=== PATIENT | female | born 1960 | race Caucasian/White ===

== ENCOUNTER 2018-05-07 16:39 | Emergency (ER) | payer MEDICARE, MEDICAID, SELFPAY ==
[2018-05-07 16:48] VITALS: BP 109/72; PULSE 77; RESP 20; TEMP 36.7; O2SAT 96
== END 2018-05-07 19:10 | disposition left against medical advice (07) ==
LOC: ED 17:03
PROVIDERS: Family Provider Family Medicine; PCP Family Medicine
DX: E11.9 Type 2 diabetes mellitus without complications (principal)
CPT/HCPCS: 99281; 99282

== ENCOUNTER → 2019-10-29 12:23 | Outpatient (CLI) | payer MEDICARE, MEDICAID, SELFPAY ==
[2019-10-29 12:49] LABS: Add Manual Diff / Slide Review NO; Basophils Absolute Auto 100 /uL (0-100); Basophils Percent Auto 0.6 % (0-2); Eosinophils Absolute Auto 200 /uL (0-450); Eosinophils Percent Auto 1.8 % (2-4); Hematocrit 42.6 % (36-46); Hemoglobin 14.2 g/dL (12.0-16.0); Lymphocytes Absolute Auto 2200 /uL (1100-4500); Lymphocytes Percent Auto 19.8 % (25-40); Mean Corpuscular HGB Conc 33.3 % (30-36); Mean Corpuscular Hemoglobin 29.6 PG (26-34); Mean Corpuscular Volume 88.9 fL (80-100); Monocytes Absolute Auto 800 /uL (0-900); Monocytes Percent Auto 7.6 % (3-14); Neutrophils Absolute Auto 7700 /uL (1500-7000); Neutrophils Percent Auto 70.2 % (50-75); Platelet Count 364 X10^3/uL (150-400); Red Blood Cell Count 4.79 X10^6/uL (4.0-5.2); Red Cell Distribution Width 13.5 % (11.6-14.8); White Blood Cell Count 10.9 X10^3/uL (4.5-11.0)
[2019-10-29 13:09] LABS: Alanine Aminotransferase 22 IU/L (<35); Albumin 4.5 g/dL (3.5-5.0); Albumin Globulin Ratio 1.3 (1.0-2.8); Alkaline Phosphatase 88 U/L (38-126); Aspartate Aminotransferase 28 IU/L (14-36); BUN Creatinine Ratio 22.9 (6-22); Bilirubin Total 0.3 mg/dL (0.2-1.3); Blood Urea Nitrogen 16 mg/dL (7-17); Calcium 10.2 mg/dL (8.4-10.2); Carbon Dioxide 31 mmol/L (22-32); Chloride 106 mmol/L (98-107); Cholesterol 183 mg/dL (140-199); Estimated Glomerular Filt Rate > 60.0 mL/min (>60); Globulin 3.6 g/dL (1.7-4.1); Glucose 105 mg/dL (70-100); HDL Cholesterol 71 mg/dL (40-60); HEMOLYSIS < 15 (0-50); LDL Cholesterol Calculated 82 mg/dL (<100); Potassium 3.7 mmol/L (3.4-5.1); Sodium 144 mmol/L (137-145); Total Protein 8.1 g/dL (6.3-8.2); Triglycerides 152 mg/dL (35-150)
[2019-10-29 13:24] LABS: Hemoglobin A1C% w Est Avg Glu 6.1 % (4.0-6.0)
== END ==
PROVIDERS: Family Provider Family Medicine; PCP Family Medicine; Referring Provider Family Medicine; Visit Provider Family Medicine
DX: Z76.89 Persons encountering health services in other specified circumstances (principal); Z79.891 Long term (current) use of opiate analgesic
CPT/HCPCS: 80053; 80061; 83036; 85025

== ENCOUNTER → 2020-02-05 10:44 | Outpatient (CLI) | payer MEDICARE, MEDICAID, SELFPAY ==
--- NOTE | 2020-02-05 10:49 | DI.RAD.S_ITS ---
PROCEDURE: XR LUMBAR SPINE 2-3V INDICATIONS: BACK PAIN TECHNIQUE: 3 views of the lumbar spine were acquired. COMPARISON: None. FINDINGS: Bones: 5 [id number] vertebrae are present. There is mild dextroscoliotic bony alignment centered at L4. No vertebral body compression fractures. No suspicious bony lesions. Facet osteoarthritis is mild to moderate, from L3 inferiorly. Soft tissues: Overlying bowel gas pattern is normal. No suspicious soft tissue calcifications. IMPRESSION: Mild scoliosis, facet osteoarthritis present from L3 inferiorly and there is only a mild degree of degenerative disc disease present through that area at L3-4. No compression fracture found. The degree of degeneration would predispose to spinal and foraminal stenosis and depending on clinical status followup by MR scanning may become necessary. Dictated by: Kushal Iqbal M.D. on 02/05/2020 at 12:30 Approved by: Kushal Iqbal M.D. on 02/05/2020 at 12:31
== END ==
PROVIDERS: Family Provider Family Medicine; PCP Family Medicine; Referring Provider Family Medicine; Visit Provider Family Medicine
DX: M54.9 Dorsalgia, unspecified (principal); M47.816 Spondylosis without myelopathy or radiculopathy, lumbar region; M51.36 Other intervertebral disc degeneration, lumbar region; M41.9 Scoliosis, unspecified; G89.29 Other chronic pain
CPT/HCPCS: 72100

== ENCOUNTER 2020-05-31 18:12 | Emergency (ER) | payer MEDICARE, MEDICAID, SELFPAY ==
[2020-05-31] VITALS (9 sets, daily range): BP systolic 136–191; BP diastolic 77–94; PULSE 76–119; RESP 22–44; TEMP 36.8; O2SAT 97–100
--- NOTE | 2020-05-31 18:12 | DI.RAD.S_ITS ---
PROCEDURE: XR TIBIA FIBULA RT 2V INDICATIONS: fall TECHNIQUE: 2 views of the tibia and fibula were acquired. COMPARISON: None. FINDINGS: Bones: Evaluation limited by suboptimal positioning. There is a moderately displaced and impacted fracture of the medial tibial plateau. There is lateral subluxation of the knee joint. Soft tissues: A large joint effusion is present with a lipohemarthrosis. Periarticular soft tissue swelling demonstrated. IMPRESSION: 1. Lateral subluxation of the left knee with a medial tibial plateau fracture. 2. Large joint effusion with a lipohemarthrosis. Dictated by: Deyvi Cardenas M.D. on 05/31/2020 at 18:45 Approved by: Deyvi Cardenas M.D. on 05/31/2020 at 18:48
--- NOTE | 2020-05-31 18:15 | ED.FALL ---
HPI - Fall General Chief Complaint: Extremity Injury, Lower Stated Complaint: lt leg fx Time Seen by Provider: 05/31/20 18:13 Source: patient and EMS Mode of arrival: EMS Limitations: no limitations History of Present Illness HPI Narrative: 60F non smoker with non-contributory medical history presents to the ED by EMS after falling down 1-2 stairs just [employer]. She has significant left knee pain with deformity. She denies LOC, head, neck, back, chest pain. She states it was purely a clumsy moment and denies any precipitating event such as dizziness or lightheadedness. She denies CP, SOB, or weakness. She denies numbness or tingling of her left leg. Her pain has been helped by EMS fentanyl and splint. She takes no blood thinners. MD complaint: fall Onset (ago): minute(s) Fall from: standing Fall witnessed: no Place fall occurred: home Loss of consciousness: none Prolonged down time: no Symptoms prior to fall: none Context: tripped/slipped Location of injury - extremities: Left: knee Severity: moderate Quality: sharp, stabbing and aching Associated symptoms (after fall): unable to walk Related Data Home Medications Medication Instructions Recorded Confirmed fenofibrate 1 tab PO DAILY 05/07/18 05/19/20 lamotrigine 200 mg PO DAILY 05/07/18 05/19/20 lisinopril 10 mg PO DAILY 05/07/18 05/19/20 lurasidone [Latuda] 1 tab PO DAILY 05/07/18 05/19/20 aspirin 325 mg tablet 325 mg PO DAILY 10/29/19 05/19/20 Previous Rx's Medication Instructions Recorded atorvastatin 80 mg PO HS #90 tab 09/30/16 Glucose: Test Strips #4 each 11/08/19 cyclobenzaprine 10 mg tablet 10 mg PO BEDTIME #30 tab 04/30/20 gabapentin 400 mg capsule See Rx Instructions .ROUTE 04/30/20 .COMPLEX #270 cap buspirone 10 mg tablet 10 mg PO BID #180 tab 05/25/20 trazodone 100 mg tablet 100 mg PO BEDTIME #90 tab 05/25/20 Allergies Allergy/AdvReac Type Severity Reaction Status Date / Time No Known Drug Allergies Allergy Unverified 05/31/20 18:17 Review of Systems Constitutional Constitutional: Denies chills, Denies fatigue, Denies fever(s), Denies frequent falls, Denies lethargy and Denies weakness Eyes Eyes: Denies change in vision, Denies eye discharge, Denies irritation and Denies loss of vision ENT Ears, Nose, Mouth, and Throat: Denies change in voice, Denies dizziness, Denies neck pain, Denies sore throat and Denies throat swelling Cardiovascular Cardiovascular: Denies chest pain, Denies irregular heart rhythm, Denies lightheadedness, Denies palpitations, Denies dyspnea, Denies dyspnea on exertion and Denies orthopnea Respiratory Respiratory: Denies cough, Denies dyspnea, Denies dyspnea on exertion and Denies wheezing Gastrointestinal Gastrointestinal: Denies abdominal pain, Denies change in bowel habits, Denies diarrhea, Denies nausea and Denies vomiting Musculoskeletal Musculoskeletal: Reports deformity, Reports arthralgias, Reports joint swelling, Reports limited range of motion, Denies neck pain and Denies numbness Integumentary/Breasts Skin/Breast: Denies pruritus, Denies erythema, Denies rash and Denies wounds Neurologic Neurologic: Denies behavioral changes, Denies confusion, Denies dizziness, Denies frequent falls, Denies loss of vision, Denies numbness and Denies weakness Psychiatric Psychiatric: Denies anxiety, Denies behavioral changes, Denies confusion, Denies depression, Denies homicidal ideation and Denies suicidal ideation Endocrine Endocrine: Denies fatigue, Denies flushing and Denies palpitations Hematologic/Lymphatic Hematologic/Lymphatic: Denies easy bruising Allergic/Immunologic Allergic/Immunologic: Denies urticaria, Denies throat swelling and Denies wheezing Patient History Medical History (Updated 05/31/20 @ 19:06 by Isaias Enamorado) Anxiety (Chronic ~2003) Bilateral hip pain (Acute) Bipolar disorder (Acute) Chronic back pain (Acute ~2011) Depression (Chronic ~1995) Diabetes (Acute) Diabetes (Acute) Dysphagia (Acute) Fibromyalgia (Chronic ~1999) Fractures (Resolved ~2018) History of urinary incontinence (Chronic) Menopause (Chronic) PTSD (post-traumatic stress disorder) (Chronic ~2002) Restless leg syndrome (Chronic) Shoulder pain (Chronic ~2002) Swallowing difficulty (Acute) Tobacco abuse disorder (Acute) Vision disorder (Chronic) Surgical History (Updated 11/10/19 @ 20:30 by Maria Luisa Tse) Anesthesia (Resolved) History of ectopic (Resolved ~05/02/80) Family History (Updated 11/10/19 @ 20:31 by Maria Luisa Tse) Father Alcoholism Mother History of heart disease Stroke Social History Smoking Status: Current every day smoker (1/2 pack per day ) Tobacco: How many years used: 14 quit status: considering quitting second hand exposure: Yes alcohol intake: former (Quit 30 years ago ) substance use type: former substance user and marijuana (former ) Smoking Status: Current every day smoker alcohol intake frequency: 0-2 drinks per day Substance Use Type: does not use Exam Narrative Exam Narrative: GENERAL: [60] year old patient appears stated age. Well-nourished, well-developed patient, in mild distress. GCS 15 HEAD: Atraumatic. Normocephalic. EYES: Pupils equal round and reactive. Extraocular motions intact. No scleral icterus. No injection or drainage. ENT: Nose without bleeding, purulent drainage. Throat without erythema, tonsillar hypertrophy or exudate. Airway patent. NECK: Trachea midline. Non tender, no stepoffs. CARDIOVASCULAR: Regular rate and rhythm without murmurs, gallops, or rubs. RESPIRATORY: Clear to auscultation. Breath sounds equal bilaterally. No wheezes, rales, or rhonchi. GASTROINTESTINAL: Abdomen soft, non-tender, nondistended. EXTREMITIES: mild tenderness to left hip. Obvious deformity to L knee with pain, swelling. This injury is closed, isolated and NV intact. Sensation distal to injury in tact. Palpable DP. Cap refill < 2s. Vacuum splint in place. . BACK: Nontender without deformity or crepitance. No flank tenderness. NEURO: AOx3. SKIN: No rash or erythema of visible areas Initial Vital Signs Initial Vital Signs: Vital Signs Pulse Rate 76 05/31/20 18:15 Respiratory Rate 22 05/31/20 18:15 Blood Pressure 142/85 H 05/31/20 18:15 Pulse Oximetry 98 05/31/20 18:15 Course Orders Ordered: ED Orders 05/31/20 18:12 XR tibia fibula LT 2V Stat 05/31/20 18:14 XR hip w pel if done LT 2V Stat 05/31/20 18:40 CT angio LE LT Stat 05/31/20 19:39 Basic Metabolic Panel Stat Complete Blood Count AUTO DIFF Stat Prothrombin Time INR Stat 05/31/20 20:00 COVID19 -ED/INPAT/OR/L&D Stat Discontinued Medications Hydromorphone HCl (Dilaudid) 0.5 mg IV NOW ONE Stop: 05/31/20 21:37 Last Admin: 05/31/20 21:42 Dose: 0.5 mg Documented by: HARSHIL Sodium Chloride (Normal Saline 0.9%) 500 mls @ 1,000 mls/hr IV BOLUS ONE Stop: 05/31/20 19:09 Last Infusion: 05/31/20 19:30 Dose: 0 mls/hr Documented by: Admin: 05/31/20 19:00 Dose: 1,000 mls/hr Documented by: ELSA Ondansetron HCl (Zofran) 4 mg IV NOW ONE Stop: 05/31/20 18:57 Last Admin: 05/31/20 19:11 Dose: 4 mg Documented by: FLORECITA Propofol (Diprivan) 75 mg IV NOW ONE Stop: 05/31/20 18:57 Last Admin: 05/31/20 21:33 Dose: Not Given Documented by: HARSHIL Consultations Consultation #1: films pushed to [facility]. Local ortho contacted on receipt of initial Xray. call to [facility]. Message left. 1929 - Dr. Jones to review images upon completion of her current OR case 1939 - not able to see images, I went to and requested that all images be sent again. Called back to let [facility] know we have resent them 2039 - call back to check on status 2109 - Dr. Jones calls back. Happy to accept. Understands and agrees with waiting on reduction. No further requests. Ambulance contacted. Time: 19:03 Consultation #2: Dr. Burt ([facility]) agrees that given NV in tact, hold off on reduction of minor subluxation. Vital Signs Vital signs: Vital Signs - 8 hr 05/31/20 18:15 05/31/20 19:30 05/31/20 19:38 Temperature Pulse Rate 76 105 H 106 H Respiratory Rate 22 44 H 38 H Blood Pressure 142/85 H 191/94 H Pulse Oximetry 98 100 100 05/31/20 20:00 05/31/20 20:30 05/31/20 20:59 Temperature Pulse Rate 110 H 110 H 116 H Respiratory Rate 27 H 31 H 28 H Blood Pressure 136/77 Pulse Oximetry 98 98 98 05/31/20 21:00 05/31/20 21:30 05/31/20 22:07 Temperature 98.2 F Pulse Rate 119 H 111 H Respiratory Rate 37 H 23 Blood Pressure 143/87 H 141/82 H Pulse Oximetry 98 97 - Fall Lab Data Result diagrams: 05/31/20 19:39 05/31/20 19:39 Labs: Lab Results 05/31/20 05/31/20 05/31/20 Range/Units 19:39 19:39 19:39 WBC 7.4 (4.5-11.0) X10^3/uL RBC 4.40 (4.0-5.2) X10^6/uL Hgb 12.9 (12.0-16.0) g/dL Hct 39.5 (36-46) % MCV 89.9 (80-100) fL MCH 29.4 (26-34) PG MCHC 32.7 (30-36) % RDW 15.2 H (11.6-14.8) % Plt Count 220 (150-400) X10^3/uL Neut % (Auto) 72.0 (50-75) % Lymph % (Auto) 18.8 L (25-40) % [place] % (Auto) 7.3 (3-14) % Eos % (Auto) 1.4 L (2-4) % Baso % (Auto) 0.5 (0-2) % Neut # (Auto) 5400 (8160-3779) /uL Lymph # (Auto) 1400 (5930-7269) /uL [place] # (Auto) 500 (0-900) /uL Eos # (Auto) 100 (0-450) /uL Baso # (Auto) 0 (0-100) /uL PT 11.9 (10.1-12.7) SECONDS INR 1.0 (0.9-1.3) Sodium 137 (137-145) mmol/L Potassium 3.6 (3.4-5.1) mmol/L Chloride 102 (98-107) mmol/L Carbon Dioxide 28 (22-32) mmol/L BUN 11 (7-17) mg/dL Creatinine 0.86 (0.52-1.04) mg/dL Estimated GFR > 60.0 (>60) mL/min BUN/Creatinine Ratio 12.8 (6-22) Glucose 129 H (80-110) mg/dL Calcium 10.5 H (8.4-10.2) mg/dL COVID-19 PCR (Negative) 05/31/20 Range/Units 20:00 WBC (4.5-11.0) X10^3/uL RBC (4.0-5.2) X10^6/uL Hgb (12.0-16.0) g/dL Hct (36-46) % MCV (80-100) fL MCH (26-34) PG MCHC (30-36) % RDW (11.6-14.8) % Plt Count (150-400) X10^3/uL Neut % (Auto) (50-75) % Lymph % (Auto) (25-40) % [place] % (Auto) (3-14) % Eos % (Auto) (2-4) % Baso % (Auto) (0-2) % Neut # (Auto) (4763-3122) /uL Lymph # (Auto) (6858-3062) /uL [place] # (Auto) (0-900) /uL Eos # (Auto) (0-450) /uL Baso # (Auto) (0-100) /uL PT (10.1-12.7) SECONDS INR (0.9-1.3) Sodium (137-145) mmol/L Potassium (3.4-5.1) mmol/L Chloride (98-107) mmol/L Carbon Dioxide (22-32) mmol/L BUN (7-17) mg/dL Creatinine (0.52-1.04) mg/dL Estimated GFR (>60) mL/min BUN/Creatinine Ratio (6-22) Glucose (80-110) mg/dL Calcium (8.4-10.2) mg/dL COVID-19 PCR Negative (Negative) Imaging Data Hip / Pelvis: Radiologist's Impression: PROCEDURE: XR HIP W PEL IF DONE LT 2V INDICATIONS: fall with pain in hip, obvious tib/fib TECHNIQUE: AP pelvis with lateral view of the left hip. COMPARISON: None. FINDINGS: Bones: No fractures or dislocations. Pelvic ring appears intact. No suspicious bony lesions. Soft tissues: The visualized bowel gas pattern is normal. No suspicious soft tissue calcifications. IMPRESSION: 1. No fracture or dislocation. Dictated by: Deyvi Cardenas M.D. on 05/31/2020 at 18:43 Approved by: Deyvi Cardenas M.D. on 05/31/2020 at 18:44 Tib / Fib: My Impression: complex tibial plateau fracture with depression and moderate displacement, mild lateral subluxation Radiologist's Impression: Chart Viewer Diagnostics DATE TYPE STATUS REF RANGE/AUTHOR Hx 05/31/20 18:14 Deyvi Cardenas 05/31/20 18:12 Deyvi Cardenas Ayse Fournier 60, F0 1960 [facility] R01 [id number] Extremity Injury, Lower Search Chart No Data to Display No Data to Display ONSET Today 18:15 Ayse Fournier F 1960 [place] [id number] XRay Report Signed Patient: Ayse FournierMR#: [id number] : 1960Acct:[id number] Age/Sex: 60 / FDate of Service: 05/31/20 Loc: ED Accession Number: [id number] Procedure: XR tibia fibula LT 2V Ordering Provider: Benjamín Lovell D.O. PROCEDURE: XR TIBIA FIBULA RT 2V INDICATIONS: fall TECHNIQUE: 2 views of the tibia and fibula were acquired. COMPARISON: None. FINDINGS: Bones: Evaluation limited by suboptimal positioning. There is a moderately displaced and impacted fracture of the medial tibial plateau. There is lateral subluxation of the knee joint. Soft tissues: A large joint effusion is present with a lipohemarthrosis. Periarticular soft tissue swelling demonstrated. IMPRESSION: 1. Lateral subluxation of the left knee with a medial tibial plateau fracture. 2. Large joint effusion with a lipohemarthrosis. Dictated by: Deyvi Cardenas M.D. on 05/31/2020 at 18:45 Approved by: Deyvi Cardenas M.D. on 05/31/2020 at 18:48 CT LE w/IV contrast: Radiologist's Impression: complex tibial plateau fracture. No arterial involvement. MDM Narrative Medical decision making narrative: Isolated complex tibial plateau fracture, likely Shatzker 5 is N/V in tact. Vascular study pending. After consultation with local ortho we agree that attempt to reduce mild subluxation is not in patient's best interest until she gets to [facility] given stable presentation currently. The nature of her injury requires transfer to achieve the best outcome. Patient is aware of diagnosis and in agreement with the plan. Discharge Plan Departure Patient Disposition: [facility] Clinical Impression: Fracture subluxation of knee joint Fracture of tibial plateau Qualifiers: Encounter type: initial encounter Fracture type: closed Laterality: left Qualified Code(s): S82.142A - Displaced bicondylar fracture of left tibia, initial encounter for closed fracture Discharge Date/Time: 05/31/20 22:00 Prescriptions: No Action atorvastatin 80 MG tablet 80 mg PO HS Qty: 90 RF: 0 (DME) Glucose: Test Strips 1 box (100 strips) 0 .Route .MEDSUPPLY Qty: 4 RF: 2 cyclobenzaprine 10 mg tablet 10 mg PO BEDTIME Qty: 30 RF: 5 gabapentin 400 mg capsule See Rx Instructions .ROUTE .COMPLEX Qty: 270 RF: 3 buspirone 10 mg tablet 10 mg PO BID Qty: 180 RF: 1 trazodone 100 mg tablet 100 mg PO BEDTIME Qty: 90 RF: 1 aspirin 325 mg tablet 325 mg PO DAILY RF: 0 lamotrigine 200 mg tablet 200 mg PO DAILY RF: 0 lisinopril 10 mg tablet 10 mg PO DAILY RF: 0 fenofibrate 54 mg tablet 1 tab PO DAILY RF: 0 lurasidone [Latuda] 60 mg tablet 1 tab PO DAILY RF: 0
--- NOTE | 2020-05-31 18:40 | DI.CT.S_ITS ---
PROCEDURE: CT ANGIO LE LT INDICATIONS: significant fracture of tibial plateau, popliteal artery inj TECHNIQUE: After the administration of intravenous contrast, contiguous axial sections acquired from the L2 level to the feet, with optional delayed image acquisition from the knees to the feet. 5 mm and 2 mm axial reconstructions performed centered on the left abdomen and left lower extremity. 3-dimensional maximum intensity projection (MIP) coronal and sagittal reformats, and/or 3-dimensional volume rendering reformatting was then performed. For radiation dose reduction, the following was used: automated exposure control. COMPARISON: [facility], CR, XR TIBIA FIBULA LT 2V, 05/31/2020, 18:10. FINDINGS: Image quality: Excellent. Extravascular tissues: The left kidney demonstrates no hydronephrosis. Visualized bowel loops are normal in caliber. No free fluid or air. No retroperitoneal or mesenteric adenopathy visualized. No ventral hernias. Bladder wall thickness is normal. No inguinal hernias or adenopathy. No vertebral body compression fractures. There is a comminuted fracture of the left medial and lateral tibial plateaus with lateral subluxation of the tibia with respect to the femur. There is articular surface depression along the medial aspect of the lateral tibial plateau by up to approximately 0.9 cm. There is medial displacement and angulation of the dominant components of the medial tibial plateau. No displaced or depressed femoral fracture. There is a large joint effusion without lipohemarthrosis. Abdominal aorta: The visualized aorta is normal in caliber and patent. The left common, external, and internal iliac arteries also appear patent. Left lower extremity: The common femoral, superficial femoral, and popliteal arteries appear normal in caliber and patent. No evidence of acute arterial injury of the popliteal artery. No evidence of active arterial extravasation. The tibioperoneal trunk, tibialis anterior, posterior tibial, and peroneal arteries appear patent along their expected courses distal to the fracture. There is a three-vessel runoff at the level of the ankle. IMPRESSION: 1. No evidence of acute arterial injury to the popliteal artery as clinically queried. 2. No evidence of active arterial extravasation. 3. Comminuted fracture of the proximal tibia with lateral subluxation with respect to the femur. 4. Large left knee joint effusion with a lipohemarthrosis. Dictated by: Deyvi Cardenas M.D. on 05/31/2020 at 19:24 Approved by: Deyvi Cardenas M.D. on 05/31/2020 at 19:34
[2020-05-31] MEDS: SODIUM CHLORIDE 0.9% 500 ML 1000 ML IV (19:00)
[2020-05-31] MEDS: ONDANSETRON 4 MG/2 ML INJ IV (19:11)
[2020-05-31 19:42] LABS: Add Manual Diff / Slide Review NO; Basophils Absolute Auto 0 /uL (0-100); Basophils Percent Auto 0.5 % (0-2); Eosinophils Absolute Auto 100 /uL (0-450); Eosinophils Percent Auto 1.4 % (2-4); Hematocrit 39.5 % (36-46); Hemoglobin 12.9 g/dL (12.0-16.0); Lymphocytes Absolute Auto 1400 /uL (1100-4500); Lymphocytes Percent Auto 18.8 % (25-40); Mean Corpuscular HGB Conc 32.7 % (30-36); Mean Corpuscular Hemoglobin 29.4 PG (26-34); Mean Corpuscular Volume 89.9 fL (80-100); Monocytes Absolute Auto 500 /uL (0-900); Monocytes Percent Auto 7.3 % (3-14); Neutrophils Absolute Auto 5400 /uL (1500-7000); Platelet Count 220 X10^3/uL (150-400); Red Cell Distribution Width 15.2 % (11.6-14.8); White Blood Cell Count 7.4 X10^3/uL (4.5-11.0)
[2020-05-31 19:53] LABS: BUN Creatinine Ratio 12.8 (6-22); Blood Urea Nitrogen 11 mg/dL (7-17); Calcium 10.5 mg/dL (8.4-10.2); Carbon Dioxide 28 mmol/L (22-32); Chloride 102 mmol/L (98-107); Estimated Glomerular Filt Rate > 60.0 mL/min (>60); Glucose 129 mg/dL (80-110); HEMOLYSIS < 15 (0-50); Potassium 3.6 mmol/L (3.4-5.1); Sodium 137 mmol/L (137-145)
[2020-05-31 20:02] LABS: Prothrombin Time 11.9 SECONDS (10.1-12.7)
[2020-05-31 20:27] LABS: COVID19 -Nasal RAPID Negative (Negative)
[2020-05-31] MEDS: HYDROMORPHONE 0.5 MG INJ IV (21:42)
== END 2020-05-31 22:00 | disposition short-term general hospital (02) ==
PROVIDERS: Emergency Provider Emergency Medicine; Family Provider Family Medicine; PCP Family Medicine
DX: S82.142A Displaced bicondylar fracture of left tibia, initial encounter for closed fracture (principal); S82.002A Unspecified fracture of left patella, initial encounter for closed fracture; W10.9XXA Fall (on) (from) unspecified stairs and steps, initial encounter
CPT/HCPCS: 51701; 73502; 73590; 73706; 80048; 85025; 85610; 87635; 96374; 96375; 99284; J1170; J2405; Q9967